=== PATIENT | male | born 1930 | race African-American/Black ===

== ENCOUNTER 2017-01-19 00:57 | Emergency (ER) | payer SELFPAY ==
[2017-01-19 01:05] VITALS: BP 149/79; PULSE 69; TEMP 98.1; BMI 26.1
--- NOTE | 2017-01-19 01:21 | PDOC ---
History of Present Illness - General Chief Complaint: Psychiatric Stated Complaint: DEMENTIA Time Seen by Provider: 01/19/17 00:59 History Source: Family Exam Limitations: Dementia - History of Present Illness Initial Comments: 01/19/17 01:18 This is an 86-year-old female who lives at [facility]. Patient has advanced dementia and sleeping in bed with her this evening when she woke up and became very agitated because she thought her was actually her father. Patient would not calm down so she was sent to the emergency room for agitation. Patient otherwise is without complaints. PAST MEDICAL HISTORY: no significant history PAST SURGICAL HISTORY: no significant history FAMILY HISTORY: no pertinant history SOCIAL HISTORY: Pt lives with family and is employed. MEDICATIONS: reviewed ALLERGIES: As per nursing notes Review of Systems General: No fevers or chills, no weakness, no weight loss HEENT: No change in vision. No sore throat,. No ear pain CardioVascular: No chest pain or shortness of breath Respiratory:No cough, or wheezing. Gastrointestinal: no nausea, vomitting, diarrhea or constipation, No rectal bleeding Genitourinary: No dysuria, hematuria, or frequency Musculoskeletal: No joint or muscle pain or swelling Neurologic: No headache, vertigo, dizziness or loss of consciousness Psychiatric: nor depression Skin: No rashes or easy bruising Endocrine: no increased thirst or abnormal weight change Allergic: no skin or latex allergy All other systems reviewed and normal EXAM: All GENERAL: The patient is awake, alert and confused. Patient is agitated and keeps looking at her and is upset because she thinks it is her father HEENT: Throat: Normal, tonsils normal, no erythema or exudate Neck: Supple, no meningeal signs, no lymphadenopathy Eyes::Pupils equal reactive and round, extraocular motion intact Chest: Nontender to palpation Cardiac: S1-S2 normal, regular rate and rhythm, no murmurs rubs or gallops Respiratory: Lungs clear to auscultation bilateral Abdomen: Soft, nondistended, normal bowel sounds, nontender to palpation diffusely Extremities: Warm, dry, no cyanosis, clubbing, or edema Skin: No rashes Neuro: Alert and oriented x3, nonfocal exam, grossly intact, normal gait Psych: Normal mood and affect Past History - Past Medical History Allergies/Adverse Reactions: Allergies Allergy/AdvReac Type Severity Reaction Status Date / Time allopurinol Allergy Verified 01/19/17 01:10 ceftriaxone Allergy Verified 01/19/17 01:10 Home Medications: Ambulatory Orders Albuterol Sulfate Inhaler - [Ventolin Hfa Inhaler -] 2 inh PO Q4H PRN 01/19/17 Aspirin [Aspirin EC] 81 mg PO DAILY 01/19/17 Diltiazem Cd [Cardizem Cd -] 240 mg PO DAILY 01/19/17 Hydrochlorothiazide 25 mg PO DAILY 01/19/17 Metoprolol Succinate [Toprol Xl] 100 mg PO DAILY 01/19/17 Multivitamins [Tab-A-Vit -] 1 tab PO DAILY 01/19/17 Dementia: Yes Diabetes: Yes Disorders: Yes (UTI'S) HTN: Yes Hypercholesterolemia: Yes Other medical history: PERIPHERAL NEUROPATHY, PMR - Psycho/Social/Smoking Cessation Hx Anxiety: Yes Suicidal Ideation: No Smoking History: Unknown if ever smoked Have you smoked in the past 12 months: No Information on smoking cessation initiated: No *Physical Exam - Vital Signs Last Vital Signs Temp Pulse Resp BP Pulse Ox 98.1 F 69 18 149/79 98 01/19/17 01:00 01/19/17 01:00 01/19/17 01:00 01/19/17 01:00 01/19/17 01:00 *DC/Admit/Observation/Transfer Diagnosis at time of Disposition: Agitation - Discharge Dispostion Disposition: HOME Condition at time of disposition: Stable Admit: No - Referrals Referrals: Hima Garvey MD [Primary Care Provider] - - Patient Instructions Additional Instructions: Mrs. Acevedo should be evaluated by a psychiatric for her agitation so that she can have some medication that can be given to her at her residence so she does not need to be sent to the emergency room for agitation Return to the emergency department immediately with ANY new, persistent or worsening symptoms. Continue any medications as previously prescribed by your physician. You should follow up with your primary doctor as soon as possible regarding today's emergency department visit. . Please make sure your doctor reviews the results of your emergency evaluation. Thank you for coming to the Emergency Department today for your care. It was a pleasure to see you today. Please note that your evaluation is INCOMPLETE until you follow-up with your doctor.
[2017-01-19] MEDS ORDERED: diazePAM 2 MG TABLET ONE ×2 (01:26→01:42)
[2017-01-19] MEDS ORDERED: diazePAM 2 MG TABLET PO ONE ×2 (01:26→01:38)
[2017-01-19] MEDS ORDERED: diazePAM CARPU-JECT 10 MG/2 ML DISP.SYRIN IM ONE (01:53)
[2017-01-19] MEDS ORDERED: diazePAM CARPU-JECT 10 MG/2 ML DISP.SYRIN ONE (01:57)
== END 2017-01-19 02:07 | disposition home or self-care (01) ==
LOC: FER 00:57
PROC: 3E033NZ Introduction of Analgesics, Hypnotics, Sedatives into Peripheral Vein, Percutaneous Approach (ICD-10-PCS; principal; 2017-01-19)
DX: R45.1 Restlessness and agitation (principal); F41.9 Anxiety disorder, unspecified; I10 Essential (primary) hypertension; E11.9 Type 2 diabetes mellitus without complications; F03.90 Unspecified dementia, unspecified severity, without behavioral disturbance, psychotic disturbance, mood disturbance, and anxiety; G62.9 Polyneuropathy, unspecified
CPT/HCPCS: 99281-25